=== PATIENT | female | born 1975 | race Hispanic/Latino ===

== ENCOUNTER 2018-03-27 13:23 | Outpatient (CLI) | payer BC | END 2018-03-27 13:24 | disposition home or self-care (01) | LOC: BICMAMMO 13:23 | PROVIDERS: ATTEND Obstetrics & Gynecology | DX: Z12.31 Encounter for screening mammogram for malignant neoplasm of breast (principal) | CPT/HCPCS: 77063; 77067 ==

== ENCOUNTER 2018-12-22 10:21 | Outpatient (CLI) | payer BC ==
--- NOTE | 2018-12-22 15:29 | RAD ---
SUPINE ABDOMEN: INDICATIONS: Abdominal pain. FINDINGS: Scattered stool and gas in the colon. Small bowel gas pattern unremarkable. Possible tiny calcificati on lower pole left kidney. Phleboliths in the pelvis. No mass effect. Psoas margins are sharp. IMPRESSION: Question tiny calcification lower pole left kidney. Bowel gas pattern unremarkable. POS: [facility]
== END 2018-12-22 10:22 | disposition home or self-care (01) ==
LOC: BICRAD 10:21
PROVIDERS: ATTEND Nurse Practitioner Family
DX: R10.30 Lower abdominal pain, unspecified (principal)
CPT/HCPCS: 74018; 81001; 87077; 87086; 87186

== ENCOUNTER 2023-07-09 06:22 | Emergency (ER) | payer BC ==
[2023-07-09] MEDS ORDERED: Acetaminophen 500 MG TAB ONE (06:56)
[2023-07-09 09:26] LABS: #Basophils 0.03 10x3/uL (0.0-0.2); %Basophils 0.6 % (0.0-1.0); %Lymphocytes 55.6 % (21.0-51.0); %Monocytes 8.3 % (0.0-10.0); %Neutrophils 34.3 % (42.0-75.0); Hematocrit 37.6 % (36.0-47.0); Hemoglobin 13.2 g/dL (12.0-16.0); Mean Corpuscular HGB CONC 35.1 g/dL (32.0-36.0); Mean Corpuscular Hemoglobin 31.8 pg (27.0-31.0); Mean Corpuscular Volume 90.6 fL (78.0-98.0); Mean Platelet Volume 9.5 fL (7.4-10.4); Platelet Count 257 10x3/uL (130-400); RBC Distribution Width 11.9 % (11.5-14.5); Red Blood Cell (RBC) Count 4.15 mill/uL (4.20-5.40)
[2023-07-09 12:21] LABS: BHCG - Serum Negative (NEGATIVE); Pregs Control Background? CLEAR/WHITE (CLR/WHITE); Pregs Control Bar Appear? YES (CONTROL BAR)
[2023-07-09 12:35] LABS: Troponin I Less than 0.010 ng/mL (< 0.028)
[2023-07-09 13:06] LABS: Globulin 3.4 g/dL (2.4-3.5)
[2023-07-09 13:10] LABS: ALT (SGPT) 16 U/L (8-55); AST (SGOT) 19 U/L (5-34); Albumin 4.3 g/dL (3.5-5.0); Alkaline Phosphatase 97 U/L (40-110); Anion Gap 14 mmol/L (10-20); BUN (Urea Nitrogen) 15 mg/dL (7.0-18.7); Bilirubin, Total 0.6 mg/dL (0.2-1.2); Calc. Creatinine Clearance 0 mL/min (70-130); Carbon Dioxide 24 mmol/L (22-29); Chloride 106 mmol/L (98-107); Estimated GFR 93; Glucose 100 mg/dL (70-105); Potassium 3.9 mmol/L (3.5-5.1); Protein, Total 7.7 g/dL (6.0-8.3); Sodium 140 mmol/L (136-145)
[2023-07-09 14:12] LABS: Troponin I Less than 0.010 ng/mL (< 0.028)
== END 2023-07-09 14:05 | disposition left against medical advice (07) ==
LOC: ERS 06:22
DX: R42 Dizziness and giddiness (principal); R29.700 NIHSS score 0; I10 Essential (primary) hypertension
CPT/HCPCS: 36416; 80053; 83690; 84703; 85025; 93005